=== PATIENT | female | born 1985 | race African-American/Black ===

== ENCOUNTER 2018-07-06 22:17 | Emergency (ER) | payer OTHER ==
[2018-07-06 22:28] VITALS: BP 125/87; PULSE 74; TEMP 98; BMI 20.2
[2018-07-06] MEDS ORDERED: BUPIVACAINE HCL/PF (5 MG/ML) 30 ML VIAL IJ ONE (23:13)
--- NOTE | 2018-07-06 23:13 | PDOC ---
Suture Removal/Wound Check HPI - History of Present Illness Chief Complaint: Revisit,Wound Recheck Stated Complaint: WOUND LEFT LEG Time Seen by Provider: 07/06/18 22:47 History Source: Yes: Patient, Old Records Exam Limitations: Yes: No Limitations Treated at: [facility] ED Date of Last ED visit: 07/03/18 - Previous ED Treatment Type of procedure performed on last visit: Yes: I&D of Abscess Antibiotics Prescribed: No - Onset of Previous Treatment Comment:: 32 y/o female presenting to [facility] ER for wound check. Pt has a left labial abscess that was I&D by QUITA Mercado on 03 Jul 2018. Packing was placed. Pt reports severe pain and purulent discharge has persisted. Denies fevers or chills. Past History - Past Medical History Allergies/Adverse Reactions: Allergies Allergy/AdvReac Type Severity Reaction Status Date / Time No Known Allergies Allergy Verified 07/06/18 22:28 Home Medications: Ambulatory Orders NK [No Known Home Medication] 07/06/18 COPD: No - Suicide/Smoking/Psychosocial Hx Smoking History: Never smoked Have you smoked in the past 12 months: No Information on smoking cessation initiated: No Hx Alcohol Use: No Drug/Substance Use Hx: No *Review of Systems - Review of Systems Able to Perform ROS?: Yes Constitutional: No: Chills, Diaphoresis, Fever Respiratory: No: Shortness of Breath Cardiac (ROS): No: Chest Pain : No: Burning, Dysuria, Discharge *Physical Exam - Vital Signs Last Vital Signs Temp Pulse Resp BP Pulse Ox 98.0 F 74 16 125/87 100 07/06/18 22:26 07/06/18 22:26 07/06/18 22:26 07/06/18 22:26 07/06/18 22:26 - Physical Exam General Appearance: Yes: Appropriately Dressed. No: Apparent Distress HEENT: positive: Normal Voice Neck: positive: Supple Respiratory/Chest: negative: Respiratory Distress Female Pelvic Exam: positive: Bartholin mass (Open incision site to anterior lower surface of left labia. Purulent material easily expressed. Firmness surrounding the area. ) Extremity: positive: Normal Range of Motion Integumentary: positive: Normal Color, Warm Moderate Sedation - Procedure Monitoring Vital Signs: Procedure Monitoring Vital Signs Temperature 98.0 F 07/06/18 22:26 Pulse Rate 74 02/21/19 22:26 Respiratory Rate 16 07/06/18 22:26 Blood Pressure 125/87 07/06/18 22:26 O2 Sat by Pulse Oximetry (%) 100 07/06/18 22:26 Procedures - Additional Procedures Progress: Incision and Drainage Procedure Note PRE-OP DIAGNOSIS: Left Bartholin Abscess POST-OP DIAGNOSIS: Same PROCEDURE: incision and drainage of abscess with Kvng Ring Insertion PROCEDURE EVENT SPECIALIST FOOD DEMONSTRATOR: Garland Gillespie M.D. PGY1 Supervising Physician (if applicable): Dr. Hinojosa PROCEDURE: A timeout protocol was performed prior to initiating the procedure. The area was prepared and draped in the usual, sterile manner. The site was anesthetized with 5% Bupivacaine. A linear incision was made laterally to old incision site and additional purulent material expressed. The abscess was explored thoroughly and sequestered pockets were opened. Kvng ring was inserted through the two incision sites and tied into place. EBL <5cc. Topical Bacitracin was placed. The area was covered with a clean and dry dressing. Follow up: The patient tolerated the procedure well without complications. Standard post-procedure care is explained and return precautions are given. Medical Decision Making - Medical Decision Making 32 y/o female with left Bartholin abscess presenting for recheck. Continued to express purulent material with significant pain. No signs of systemic infection. Second I&D was performed with placement of Kvng ring. Motrin administered PO for pain. After care and return precautions. Referral placed for OBGYN follow up. Pt expressed verbal understanding and agreement with plan to discharge with outpatient follow up. *DC/Admit/Observation/Transfer Diagnosis at time of Disposition: Infection of Bartholin's gland - Discharge Dispostion Disposition: HOME Condition at time of disposition: Good Decision to Admit order: No - Referrals Referrals: Rick Barnes MD [Staff Physician] - - Patient Instructions Printed Discharge Instructions: DI for Bartholin Gland Cyst Additional Instructions: You were seen today to check the abscess. It is still expressing purulent material. A Kvng Ring was placed. This will allow the abscess to continue to drain. You may still experience bleeding and purulent discharge from the area for the next several days. You can take over the counter Tylenol or Advil as needed for pain. Take as directed on the package insert. Do not exceed the recommended dosage. You need to follow up with an OBGYN within the next 3-4 days. I have referred you to Dr. Barnes. You will need to call to make an appointment. The number is included in this packet. Go to the nearest emergency department if your condition worsens or you feel like you need additional emergency evaluation. Print Language: QATARI - Post Discharge Activity
[2018-07-06] MEDS ORDERED: BUPIVACAINE HCL/PF 0.5% (5MG/ML) 10 ML VIAL ONE (23:44)
--- NOTE | 2018-07-06 23:45 | PDOC ---
Attending Attestation - Resident Resident Name: Garland Gillespie - ED Attending Attestation I have performed the following: I have examined & evaluated the patient, The case was reviewed & discussed with the resident, I agree w/resident's findings & plan, Exceptions are as noted - HPI HPI: 07/06/18 23:43 The patient is a 32 year old female, with no significant PMH, who presents to the emergency department for wound check. The patient states she was evaluated here at [facility] 3 days ago and had a bartholin's abscess drained. The patient states since that time the packing has fallen out. However, she states the swelling and pain have improved. She endorses some persistent purulent drainage but no bleeding. The patient denies any recent fevers or chills. The patient denies chest pain, shortness of breath, headache and dizziness. Denies fever, chills, nausea, vomit, diarrhea and constipation. Denies dysuria, frequency, urgency and hematuria. Allergies: NKA - Physicial Exam PE: 07/06/18 23:44 "GENERAL: Awake, alert, and fully oriented, in no acute distress. HEAD: No signs of trauma EYES: PERRLA, EOMI, sclera anicteric, conjunctiva clear ENT: Auricles normal inspection, hearing grossly normal, nares patent, oropharynx clear without exudates. Moist mucosa NECK: Nontender, no stepoffs, Normal ROM, supple, no lymphadenopathy, JVD, or masses LUNGS: Breath sounds equal, clear to auscultation bilaterally. No wheezes, and no crackles HEART: Regular rate and rhythm, normal S1 and S2, no murmurs, rubs or gallops ABDOMEN: Soft, nontender, normoactive bowel sounds. No guarding, no rebound. No masses EXTREMITIES: Normal range of motion, no edema. No clubbing or cyanosis. No cords, erythema, or tenderness NEUROLOGICAL: Cranial nerves II through XII intact. 5/5 strength and sensation in all extremities, Normal speech, normal gait, normal cerebellar function SKIN: Warm, Dry, normal turgor, no rashes or lesions noted. : L bartholin's abscess with mild induration, some purulent drainage, no packing in place - Medical Decision Making 07/06/18 23:44 32 F with bartholin's abscess s/p drainage 3 days ago. Wound is healing well, though still with active drainage. Packing has since fallen out. - Will insert Kvng ring - F/u credentialing specialist 07/07/18 00:35 Kvng ring inserted Pt to f/u with credentialing specialist outpt Pt is well appearing, with normal vitals. Clinically stable for DC at this time. I discussed the physical exam findings, ancillary test results and final diagnoses with the patient. I answered all of the patient's questions. The patient was satisfied with the care received and felt comfortable with the discharge plan and treatment plan. The patient agrees to follow up with the primary care physician within 24-72 hours.
[2018-07-07] MEDS ORDERED: IBUPROFEN 600 MG TABLET (FP) PO ONE ×2 (00:50→00:51)
== END 2018-07-07 00:54 | disposition home or self-care (01) ==
LOC: JER 22:17
PROC: 0U9L00Z Drainage of Vestibular Gland with Drainage Device, Open Approach (ICD-10-PCS; principal; 2018-07-06)
DX: N75.1 Abscess of Bartholin's gland (principal)
CPT/HCPCS: 99282-25

== ENCOUNTER 2021-07-09 13:14 | Emergency (ER) | payer SELFPAY ==
[2021-07-09 13:21] VITALS: BMI 19.5
[2021-07-09] MEDS ORDERED: ACETAMINOPHEN 500 MG TABLET (FP) PO ONE (14:43)
[2021-07-09] MEDS ORDERED: ACETAMINOPHEN 500 MG TABLET (FP) ONE (14:52)
[2021-07-09 15:23] LABS: URINE APPEARANCE CLEAR; URINE BILIRUBIN NEGATIVE (NEGATIVE); URINE COLOR YELLOW; URINE GLUCOSE (UA) NEGATIVE (NEGATIVE); URINE KETONE 2+ (NEGATIVE); URINE LEUK ESTERASE NEGATIVE (NEGATIVE); URINE NITRITE NEGATIVE (NEGATIVE); URINE PROTEIN TRACE (NEGATIVE); URINE UROBILINOGEN 0.2 mg/dL (0.2-1.0)
[2021-07-09 15:25] LABS: HCG,QUALITATIVE URINE Negative
[2021-07-09 15:49] LABS: BASO % 0.6 % (0-2.0); EOS % 1.6 % (0-4.5); HEMATOCRIT 42.2 % (32.4-45.2); HEMOGLOBIN 13.1 GM/dL (10.7-15.3); LYMPH % 39.8 % (8-40); MCH 24.7 pg (25.7-33.7); MEAN CELL VOLUME 79.7 fl (80-96); MEAN PLT VOLUME 9.5 fl (7.5-11.1); MONO % 7.8 % (3.8-10.2); NEUT % 50.2 % (42.8-82.8); PLATELET COUNT 240 10^3/uL (134-434); RDW 13.3 % (11.6-15.6); WHITE BLOOD COUNT 4.5 K/mm3 (4.0-10.0)
[2021-07-09 16:06] LABS: CALCIUM 9.5 mg/dL (8.5-10.1)
[2021-07-09 16:08] LABS: ALBUMIN 5.1 g/dl (3.4-5.0); BLOOD UREA NITROGEN 10.2 mg/dL (7-18)
[2021-07-09 16:09] LABS: CREATININE 0.7 mg/dL (0.55-1.3)
[2021-07-09 16:12] LABS: BILIRUBIN,TOTAL 1.9 mg/dL (0.2-1); TOT PROT 8.1 g/dl (6.4-8.2)
[2021-07-09 16:35] LABS: SYPHILIS W/ RPR CONF NON-REACTIVE (NONREACTIVE)
[2021-07-09 17:04] LABS: HIV INTERPRETATION NEGATIVE (NEGATIVE)
[2021-07-09] MEDS ORDERED: cefTRIAXone SODIUM 1 GM VIAL ONE (17:27)
[2021-07-09 17:49] VITALS: BP 127/83; PULSE 70; TEMP 97.3
== END 2021-07-09 17:49 | disposition home or self-care (01) ==
LOC: JER 13:14
DX: N83.01 Follicular cyst of right ovary (principal); Z11.3 Encounter for screening for infections with a predominantly sexual mode of transmission
CPT/HCPCS: 36415; 76830-TC; 80053; 81003; 83690; 84703; 85025; 86780; 87070; 87077; 87086; 87205; 87389; 87491; 87591; 99284-25

== ENCOUNTER 2022-01-23 22:29 | Emergency (ER) | payer OTHER ==
[2022-01-23 22:34] VITALS: BP 139/94; PULSE 71; RESP 19; TEMP 98.6; BMI 19.9
[2022-01-23] MEDS ORDERED: DOXYCYCLINE HYCLATE 100 MG CAPSULE PO ONE (23:36)
[2022-01-23 23:53] LABS: PH,URINE 5.5 (5.0-8.0); URINE APPEARANCE CLEAR; URINE BILIRUBIN NEGATIVE (NEGATIVE); URINE COLOR YELLOW; URINE GLUCOSE (UA) NEGATIVE (NEGATIVE); URINE KETONE NEGATIVE (NEGATIVE); URINE LEUK ESTERASE NEGATIVE (NEGATIVE); URINE NITRITE NEGATIVE (NEGATIVE); URINE PROTEIN NEGATIVE (NEGATIVE); URINE UROBILINOGEN 0.2 mg/dL (0.2-1.0)
[2022-01-23 23:56] LABS: HCG,QUALITATIVE URINE Negative
[2022-01-24] MEDS ORDERED: DOXYCYCLINE HYCLATE 100 MG CAPSULE PO ONE (00:09)
[2022-01-24] MEDS ORDERED: cefTRIAXone SODIUM 1 GM VIAL ONE (00:09)
[2022-01-24 00:46] LABS: SYPHILIS W/ RPR CONF NON-REACTIVE (NONREACTIVE)
[2022-01-24 01:15] LABS: HIV INTERPRETATION NEGATIVE (NEGATIVE)
== END 2022-01-24 01:05 | disposition home or self-care (01) ==
LOC: JER 22:29
DX: Z11.3 Encounter for screening for infections with a predominantly sexual mode of transmission (principal)
CPT/HCPCS: 36415; 81003; 84703; 86780; 87086; 87389; 87491; 87529; 87591; 99284-25

== ENCOUNTER 2022-07-23 23:02 | Emergency (ER) | payer OTHER ==
[2022-07-23 23:13] VITALS: BP 151/96; PULSE 97; RESP 18; TEMP 98.1
[2022-07-24] MEDS ORDERED: MAG HYDROX/AL HYDROX/SIMETH 30 ML UNIT-DOSE CUP PO ONE (01:07)
[2022-07-24] MEDS ORDERED: FAMOTIDINE 20 MG TABLET PO ONE (01:07)
[2022-07-24] MEDS ORDERED: FAMOTIDINE 20 MG TABLET ONE (01:29)
[2022-07-24] MEDS ORDERED: MAG HYDROX/AL HYDROX/SIMETH 30 ML UNIT-DOSE CUP ONE (01:29)
[2022-07-24 02:28] LABS: BASO % 0.5 % (0-2.0); HEMATOCRIT 42.9 % (32.4-45.2); HEMOGLOBIN 13.5 GM/dL (10.7-15.3); LYMPH % 29.8 % (8-40); MCH 24.5 pg (25.7-33.7); MCHC 31.4 g/dl (32.0-36.0); MEAN CELL VOLUME 78.1 fl (80-96); MEAN PLT VOLUME 9.4 fl (7.5-11.1); MONO % 8.5 % (3.8-10.2); NEUT % 60.2 % (42.8-82.8); PLATELET COUNT 226 10^3/uL (134-434); RBC 5.49 M/mm3 (3.60-5.2); RDW 14.2 % (11.6-15.6); WHITE BLOOD COUNT 5.6 K/mm3 (4.0-10.0)
[2022-07-24 02:32] LABS: INR 1.06 (0.83-1.09); PROTHROMBIN TIME (PATIENT) 12.3 SEC (9.7-13.0)
[2022-07-24 02:35] LABS: ACTIVATED PTT 33.5 SECONDS (25.2-36.5)
[2022-07-24 02:50] LABS: ALBUMIN 4.9 g/dl (3.4-5.0); CALCIUM 9.9 mg/dL (8.5-10.1)
[2022-07-24 02:51] LABS: BLOOD UREA NITROGEN 12.3 mg/dL (7-18)
[2022-07-24 02:53] LABS: CREATININE 0.8 mg/dL (0.55-1.3); PHOSPHOROUS 4.5 mg/dL (2.5-4.9)
[2022-07-24 02:55] LABS: BILIRUBIN,TOTAL 0.8 mg/dL (0.2-1); TOT PROT 8.2 g/dl (6.4-8.2)
[2022-07-24] MEDS ORDERED: ALPRAZolam 0.25 MG TABLET PO ONE (02:56)
[2022-07-24] MEDS ORDERED: ALPRAZolam 0.25 MG TABLET ONE (03:27)
== END 2022-07-24 04:37 | disposition home or self-care (01) ==
LOC: JER 23:02
DX: R00.2 Palpitations (principal)
CPT/HCPCS: 0241U-QW; 36415; 80053; 83690; 83735; 84100; 84443; 84484; 85025; 85610; 85730; 93005; 93010; 99285-25

== ENCOUNTER 2022-07-30 11:43 | Emergency (ER) | payer OTHER ==
[2022-07-30 12:09] VITALS: TEMP 97.5; BMI 19.3
[2022-07-30] MEDS ORDERED: MAG HYDROX/AL HYDROX/SIMETH 30 ML UNIT-DOSE CUP ONE (14:29)
[2022-07-30] MEDS ORDERED: FAMOTIDINE 20 MG/50 ML IVPB 20 MG/50 ML MG IVPB ONE ×2 (14:29→14:33)
[2022-07-30] MEDS ORDERED: ACETAMINOPHEN INJECTION 100 ML IVPB ONE (14:29)
[2022-07-30] MEDS ORDERED: ACETAMINOPHEN 1000 MG/100 ML BAG IVPB ONE (14:32)
[2022-07-30] MEDS ORDERED: MAG HYDROX/AL HYDROX/SIMETH -MYLANTA- ORAL SUSPENSION PO ONE (14:33)
[2022-07-30 14:52] LABS: BASO % 0.9 % (0-2.0); EOS % 0.9 % (0-4.5); HEMATOCRIT 42.3 % (32.4-45.2); HEMOGLOBIN 13.6 GM/dL (10.7-15.3); LYMPH % 33.7 % (8-40); MCH 25.3 pg (25.7-33.7); MCHC 32.1 g/dl (32.0-36.0); MEAN CELL VOLUME 78.9 fl (80-96); MEAN PLT VOLUME 9.7 fl (7.5-11.1); MONO % 7.5 % (3.8-10.2); PLATELET COUNT 217 10^3/uL (134-434); RBC 5.36 M/mm3 (3.60-5.2); RDW 13.6 % (11.6-15.6); WHITE BLOOD COUNT 5.8 K/mm3 (4.0-10.0)
[2022-07-30 15:05] VITALS: RESP 18
[2022-07-30 15:23] LABS: CALCIUM 9.3 mg/dL (8.5-10.1)
[2022-07-30 15:24] LABS: ALBUMIN 4.8 g/dl (3.4-5.0); BLOOD UREA NITROGEN 13.5 mg/dL (7-18)
[2022-07-30 15:27] LABS: CREATININE 0.8 mg/dL (0.55-1.3)
[2022-07-30 15:29] LABS: BILIRUBIN,TOTAL 1.8 mg/dL (0.2-1)
[2022-07-30 18:36] VITALS: BP 120/83; PULSE 83
== END 2022-07-30 18:36 | disposition home or self-care (01) ==
LOC: JER 11:43
PROC: 3E033GC Introduction of Other Therapeutic Substance into Peripheral Vein, Percutaneous Approach (ICD-10-PCS; principal; 2022-07-30)
PROC: 3E033NZ Introduction of Analgesics, Hypnotics, Sedatives into Peripheral Vein, Percutaneous Approach (ICD-10-PCS; 2022-07-30)
DX: R00.2 Palpitations (principal); R07.89 Other chest pain
CPT/HCPCS: 0241U-QW; 36415; 71046-TC-FY; 80053; 84484; 84703; 85025; 85379; 93005; 93010; 99285-25

== ENCOUNTER 2022-08-02 13:31 | Emergency (ER) | payer OTHER ==
[2022-08-02 13:58] VITALS: TEMP 98.3; BMI 19.1
[2022-08-02] MEDS ORDERED: MAG HYDROX/AL HYDROX/SIMETH 30 ML UNIT-DOSE CUP PO ONE (16:14)
[2022-08-02] MEDS ORDERED: FAMOTIDINE 20 MG TABLET PO ONE (16:14)
[2022-08-02] MEDS ORDERED: FAMOTIDINE 20 MG TABLET ONE (16:29)
[2022-08-02] MEDS ORDERED: MAG HYDROX/AL HYDROX/SIMETH 30 ML UNIT-DOSE CUP ONE (16:30)
[2022-08-02 16:56] VITALS: BP 132/83; PULSE 97; RESP 19
== END 2022-08-02 17:08 | disposition home or self-care (01) ==
LOC: JER 13:31
DX: R10.13 Epigastric pain (principal)
CPT/HCPCS: 93005; 93010; 99283-25

== ENCOUNTER 2022-08-10 11:46 | Emergency (ER) | payer OTHER ==
[2022-08-10 12:14] VITALS: PULSE 87; RESP 18; TEMP 99.1
[2022-08-10 12:17] VITALS: BP 135/91; BMI 18.9
[2022-08-10 15:38] LABS: BASO % 0.8 % (0-2.0); EOS % 0.7 % (0-4.5); HEMATOCRIT 40.9 % (32.4-45.2); HEMOGLOBIN 13.4 GM/dL (10.7-15.3); LYMPH % 37.6 % (8-40); MCH 25.4 pg (25.7-33.7); MCHC 32.7 g/dl (32.0-36.0); MEAN CELL VOLUME 77.6 fl (80-96); MEAN PLT VOLUME 9.3 fl (7.5-11.1); NEUT % 54.9 % (42.8-82.8); PLATELET COUNT 247 10^3/uL (134-434); RBC 5.27 M/mm3 (3.60-5.2); RDW 13.4 % (11.6-15.6); WHITE BLOOD COUNT 4.9 K/mm3 (4.0-10.0)
[2022-08-10 15:42] LABS: INR 1.14 (0.83-1.09); PROTHROMBIN TIME (PATIENT) 13.2 SEC (9.7-13.0)
[2022-08-10 15:45] LABS: ACTIVATED PTT 30.5 SECONDS (25.2-36.5)
[2022-08-10 16:21] LABS: BLOOD UREA NITROGEN 7.8 mg/dL (7-18); CALCIUM 9.5 mg/dL (8.5-10.1)
[2022-08-10 16:22] LABS: ALBUMIN 4.9 g/dl (3.4-5.0)
[2022-08-10 16:25] LABS: CREATININE 0.8 mg/dL (0.55-1.3)
[2022-08-10 16:26] LABS: BILIRUBIN,TOTAL 1.3 mg/dL (0.2-1); TOT PROT 8.3 g/dl (6.4-8.2)
== END 2022-08-10 19:15 | disposition home or self-care (01) ==
LOC: JER 11:46
DX: M79.605 Pain in left leg (principal)
CPT/HCPCS: 36415; 71275-TC; 80053; 84484; 84703; 85025; 85379; 85610; 85730; 93005; 93010; 93971-TC; 99285-25; Q9967

== ENCOUNTER 2022-08-11 18:19 | Emergency (ER) | payer OTHER ==
[2022-08-11 18:40] VITALS: BP 118/87; PULSE 99; RESP 22; TEMP 98; BMI 18.3
== END 2022-08-11 21:14 | disposition home or self-care (01) ==
LOC: JER 18:19
DX: R10.13 Epigastric pain (principal); R00.2 Palpitations
CPT/HCPCS: 36415; 74018-TC-FY; 86677; 99284-25